=== PATIENT | female | born 1955 | race Caucasian/White ===

== ENCOUNTER 2017-05-27 08:43 | Inpatient (IN) | payer MEDICARE, OTHER ==
[~2017-05-27] VITALS: Ht 154.9 cm; Wt 118.5 kg
[2017-05-27] MEDS ORDERED: SODIUM CHLORIDE FLUSH 10ML SYR IVF ONE (09:30)
[2017-05-27] MEDS ORDERED: SODIUM CHLORIDE 0.9% 1,000ML IVBOLUS ONE (09:30)
[2017-05-27] MEDS ORDERED: METO200T5 PO (09:32)
[2017-05-27] MEDS ORDERED: ESOM20CA PO (09:32)
[2017-05-27] MEDS ORDERED: BUDE10.2 INH (09:32)
[2017-05-27] MEDS ORDERED: METF500T4 PO (09:32)
[2017-05-27] MEDS ORDERED: ATOR40TA78 PO (09:32)
[2017-05-27] MEDS ORDERED: DULO30CA2 PO (09:32)
[2017-05-27] MEDS ORDERED: TIOT18CA INH (09:32)
[2017-05-27] MEDS ORDERED: CHOL200074 PO (09:32)
[2017-05-27] MEDS ORDERED: VARE1TAB21 PO (09:32)
[2017-05-27] MEDS ORDERED: LISI5TAB7 PO (09:32)
[2017-05-27] MEDS ORDERED: FURO20TA3 PO (09:32)
[2017-05-27] MEDS ORDERED: ASPI-496 PO (09:32)
[2017-05-27] MEDS ORDERED: METH500T7 PO (09:32)
[2017-05-27] MEDS ORDERED: INSU100V8 SQ (09:32)
[2017-05-27] MEDS ORDERED: FENT1PAT77 TD (09:32)
[2017-05-27] MEDS ORDERED: OXYC-307 PO (09:32)
[2017-05-27] MEDS ORDERED: GABA300C10 PO (09:32)
[2017-05-27] MEDS ORDERED: GLUC1VIA4 SQ (09:32)
[2017-05-27] MEDS ORDERED: TRAZ50TA18 PO (09:32)
[2017-05-27] MEDS ORDERED: MAGN250T8 PO (09:32)
[2017-05-27 10:07] LABS: BASOPHILS # (AUTO) 0.04 x10^3/uL (0-0.1); BASOPHILS % (AUTO) 0 % (0-1); EOSINOPHILS # (AUTO) 0.01 x10^3/uL (0-0.4); EOSINOPHILS % (AUTO) 0 % (1-7); LYMPHOCYTES # (AUTO) 2.05 x10^3/uL (1-3.4); LYMPHOCYTES % (AUTO) 17 % (22-44); MD NO; MEAN CORPUSCULAR HEMOGLOBIN 26.8 pg (27.0-34.8); MEAN CORPUSCULAR HGB CONC 32.4 g/dL (32.4-35.8); MEAN CORPUSCULAR VOLUME 82.8 fL (80-100); MEAN PLATELET VOLUME 8.9 fL (7.4-10.4); MONOCYTES # (AUTO) 0.64 x10^3/uL (0.2-0.8); MONOCYTES % (AUTO) 6 % (2-9); NEUTROPHILS # (AUTO) 9.01 x10^3/uL (1.8-6.8); NEUTROPHILS % (AUTO) 77 % (42-75); PLATELET COUNT 258 x10^3/uL (130-400); RED BLOOD COUNT 4.27 x10^6/uL (3.82-5.3); RED CELL DISTRIBUTION WIDTH 16.6 % (9.6-15.2)
[2017-05-27 10:21] LABS: ALANINE AMINOTRANSFERASE 39 U/L (12-78); ALBUMIN 3.5 g/dL (3.4-5.0); ANION GAP 6 mmol/L (5-15); CALCIUM 8.3 mg/dL (8.5-10.1); CHLORIDE 101 mmol/L (98-107); CREATININE 1.73 mg/dL (0.55-1.02)
[2017-05-27 10:24] LABS: ALKALINE PHOSPHATASE 93 U/L (45-117); BILIRUBIN,TOTAL 0.2 mg/dL (0.2-1.0); TOTAL PROTEIN 7.8 g/dL (6.4-8.2); TROPONIN I < 0.015 ng/mL (0.000-0.045)
[2017-05-27] MEDS ORDERED: CEFTRIAXONE PMX 1GM/50ML 50 ML IVPB ONE (11:00)
[2017-05-27] MEDS ORDERED: CEFTRIAXONE PMX 1GM/50ML 50 ML ONE (11:58)
[2017-05-27] MEDS ORDERED: MORPHINE SULFATE 4 MG/ML, 1ML ONE (13:14)
[2017-05-27] MEDS ORDERED: ONDANSETRON 2MG/ML, 2ML ONE (13:14)
[2017-05-27] MEDS ORDERED: SODIUM CHLORIDE FLUSH 10ML SYR IVF PRN (14:00)
[2017-05-27] MEDS: SODIUM CHLORIDE 0.9% 1,000 ML IV SCH (15:46)
[2017-05-27] MEDS ORDERED: PHARMACY MAY ADJ FOR RENAL FX MC PRN (16:00)
[2017-05-27] MEDS ORDERED: ONDANSETRON 2MG/ML, 2ML IVPush PRN (16:00)
[2017-05-27] MEDS: FENTANYL REMOVE PATCH NOTE XX SCH (16:00)
[2017-05-27] MEDS: METHOCARBAMOL 500 MG TABLET PO SCH ×2 (16:00→21:04)
[2017-05-27] MEDS ORDERED: ONDANSETRON ODT 4 MG PO PRN (16:00)
[2017-05-27] MEDS: NICOTINE 14MG/24 HR PATCH.TD24 TD SCH (16:00)
[2017-05-27] MEDS ORDERED: IPRATROPIUM 0.5 MG/2.5 ML INHA HHN SCH (16:30)
[2017-05-27] MEDS: METOPROLOL MC SCH (16:30)
[2017-05-27 16:42] LABS: HEMOGLOBIN A1C 7.1 % (4.2-6.3)
[2017-05-27] MEDS: ENOXAPARIN 40 MG/0.4 ML SQ SCH (17:20)
[2017-05-27] MEDS: GABAPENTIN 400 MG CAPSULE PO SCH ×2 (17:21→21:04)
[2017-05-27] MEDS: AZITHROMYCIN 500 MG in SODIUM CHLORIDE 0.9% 250 ML IV SCH (17:21)
[2017-05-27] MEDS: OXYcodone/APAP 10/325MG TABLET PO PRN (17:22)
[2017-05-27] MEDS: FENTANYL 25 MCG PATCH TD SCH (17:23)
[2017-05-27] MEDS: INSULIN DETEMIR 100 UNITS/ML, PEN SQ-INSULIN SCH (18:46)
[2017-05-27 19:00] VITALS: BP 96/56
[2017-05-27] MEDS: ALBUTEROL/IPRATROPIUM 2.5MG/0.5MG, 3 ML NPPB SCH (20:20)
[2017-05-27] MEDS: TRAZODONE 50MG TABLET PO SCH (21:00)
[2017-05-27] MEDS: ATORVASTATIN 40 MG TABLET PO SCH (21:04)
[2017-05-28] MEDS: METOPROLOL MC SCH ×2 (00:30→08:30)
[2017-05-28 01:51] VITALS: BP 101/67
[2017-05-28] MEDS: ALBUTEROL/IPRATROPIUM 2.5MG/0.5MG, 3 ML NPPB SCH ×5 (02:34→18:51)
[2017-05-28] MEDS: SODIUM CHLORIDE 0.9% 1,000 ML IV SCH (04:53)
[2017-05-28 05:38] LABS: BASOPHILS # (AUTO) 0.03 x10^3/uL (0-0.1); BASOPHILS % (AUTO) 0 % (0-1); EOSINOPHILS # (AUTO) 0.05 x10^3/uL (0-0.4); EOSINOPHILS % (AUTO) 1 % (1-7); LYMPHOCYTES # (AUTO) 2.28 x10^3/uL (1-3.4); LYMPHOCYTES % (AUTO) 31 % (22-44); MD NO; MEAN CORPUSCULAR HEMOGLOBIN 26.8 pg (27.0-34.8); MEAN CORPUSCULAR HGB CONC 31.7 g/dL (32.4-35.8); MEAN CORPUSCULAR VOLUME 84.5 fL (80-100); MEAN PLATELET VOLUME 8.8 fL (7.4-10.4); MONOCYTES # (AUTO) 0.73 x10^3/uL (0.2-0.8); MONOCYTES % (AUTO) 10 % (2-9); NEUTROPHILS # (AUTO) 4.26 x10^3/uL (1.8-6.8); NEUTROPHILS % (AUTO) 58 % (42-75); PLATELET COUNT 229 x10^3/uL (130-400); RED CELL DISTRIBUTION WIDTH 17.4 % (9.6-15.2)
[2017-05-28 05:39] LABS: ALANINE AMINOTRANSFERASE 34 U/L (12-78); ALBUMIN 2.8 g/dL (3.4-5.0); ANION GAP 2 mmol/L (5-15); CALCIUM 8.2 mg/dL (8.5-10.1); CHLORIDE 111 mmol/L (98-107); CREATININE 1.14 mg/dL (0.55-1.02)
[2017-05-28 05:41] LABS: ALKALINE PHOSPHATASE 73 U/L (45-117); BILIRUBIN,TOTAL 0.5 mg/dL (0.2-1.0); TOTAL PROTEIN 6.7 g/dL (6.4-8.2)
[2017-05-28 08:20] VITALS: BP 105/54
[2017-05-28] MEDS: OXYcodone/APAP 10/325MG TABLET PO PRN ×3 (08:49→23:14)
[2017-05-28] MEDS: FLUTICASONE/VILANTEROL 200-25MCG/INH INH SCH (09:00)
[2017-05-28] MEDS ORDERED: METOPROLOL SUCCINATE PO SCH (09:00)
[2017-05-28] MEDS ORDERED: METO-264 PO (09:10)
[2017-05-28] MEDS: METHOCARBAMOL 500 MG TABLET PO SCH ×3 (09:28→20:46)
[2017-05-28] MEDS: ACETAMINOPHEN 325 MG TABLET PO PRN ×2 (09:28→17:11)
[2017-05-28] MEDS: GABAPENTIN 400 MG CAPSULE PO SCH ×3 (09:29→20:46)
[2017-05-28] MEDS: ASPIRIN 81 MG TABLET EC PO SCH (09:29)
[2017-05-28] MEDS: DULOXETINE 30 MG CAPSULE.DR PO SCH (09:29)
[2017-05-28] MEDS: CEFTRIAXONE PMX 1GM/50ML 50 ML IV SCH (09:32)
[2017-05-28 15:10] VITALS: BP 108/73
[2017-05-28] MEDS ORDERED: GLUCAGON 1 MG IM PRN (16:00)
[2017-05-28] MEDS ORDERED: DEXTROSE 50%, 50ML SYRINGE IVPush PRN (16:00)
[2017-05-28] MEDS: INSULIN ASPART 100 UNITS/ML, PEN SQ-INSULIN SCH ×2 (16:00→20:45)
[2017-05-28] MEDS ORDERED: DEXTROSE 4 GM TAB.CHEW PO PRN (16:00)
[2017-05-28] MEDS ORDERED: VANCOMYCIN 2,000 MG in SODIUM CHLORIDE 0.9% 500 ML IV SCH (17:00)
[2017-05-28] MEDS ORDERED: PHARMACOKINETIC CONSULTATION MC ONE (17:00)
[2017-05-28] MEDS ORDERED: VANCOMYCIN PER PHARMACY MC PRN (17:00)
[2017-05-28] MEDS ORDERED: PHARMACOKINETIC MONITORING MC PRN (17:00)
[2017-05-28] MEDS: METOPROLOL TARTRATE 50 MG TABLET PO SCH (17:02)
[2017-05-28] MEDS: NICOTINE 14MG/24 HR PATCH.TD24 TD SCH (17:11)
[2017-05-28] MEDS: PANTOPRAZOLE 20MG TABLET PO SCH (17:11)
[2017-05-28 19:51] VITALS: BP 132/72
[2017-05-28] MEDS: AZITHROMYCIN 500 MG in SODIUM CHLORIDE 0.9% 250 ML IV SCH (20:43)
[2017-05-28] MEDS: INSULIN DETEMIR 100 UNITS/ML, PEN SQ-INSULIN SCH (20:45)
[2017-05-28] MEDS: ATORVASTATIN 40 MG TABLET PO SCH (20:46)
[2017-05-28] MEDS: ENOXAPARIN 40 MG/0.4 ML SQ SCH (20:46)
[2017-05-28] MEDS: TRAZODONE 50MG TABLET PO SCH (20:46)
[2017-05-28] MEDS: SODIUM CHLORIDE FLUSH 10ML SYR IVF SCH (20:51)
[2017-05-29] MEDS: ARTIFICIAL TEARS OPHTH SOLN 15ML EACHEYE PRN ×3 (00:26→20:58)
[2017-05-29] MEDS: SODIUM CHLORIDE NASAL SPRAY 45ML BOTTLE NAS PRN ×3 (00:44→20:59)
[2017-05-29 02:00] VITALS: BP 107/57
[2017-05-29] MEDS: ALBUTEROL/IPRATROPIUM 2.5MG/0.5MG, 3 ML NPPB SCH ×4 (03:00→18:58)
[2017-05-29 05:39] LABS: ANION GAP 6 mmol/L (5-15); CALCIUM 8.1 mg/dL (8.5-10.1); CHLORIDE 112 mmol/L (98-107); CREATININE 0.65 mg/dL (0.55-1.02)
[2017-05-29] MEDS: METOPROLOL TARTRATE 50 MG TABLET PO SCH ×2 (05:47→18:09)
[2017-05-29] MEDS: SODIUM CHLORIDE 0.9% 1,000 ML IV SCH ×2 (05:48→20:56)
[2017-05-29] MEDS: OXYcodone/APAP 10/325MG TABLET PO PRN ×2 (05:55→16:42)
[2017-05-29] MEDS: ACETAMINOPHEN 325 MG TABLET PO PRN ×3 (06:02→23:11)
[2017-05-29] MEDS: INSULIN ASPART 100 UNITS/ML, PEN SQ-INSULIN SCH ×4 (07:00→20:59)
[2017-05-29 07:32] VITALS: BP 118/70
[2017-05-29] MEDS: FLUTICASONE/VILANTEROL 200-25MCG/INH INH SCH (09:00)
[2017-05-29] MEDS: SODIUM CHLORIDE FLUSH 10ML SYR IVF SCH ×2 (09:00→20:57)
[2017-05-29] MEDS: PANTOPRAZOLE 20MG TABLET PO SCH ×2 (09:33→18:09)
[2017-05-29] MEDS: METHOCARBAMOL 500 MG TABLET PO SCH ×3 (09:33→20:58)
[2017-05-29] MEDS: ASPIRIN 81 MG TABLET EC PO SCH (09:33)
[2017-05-29] MEDS: GABAPENTIN 400 MG CAPSULE PO SCH ×3 (09:33→20:58)
[2017-05-29] MEDS: DULOXETINE 30 MG CAPSULE.DR PO SCH (09:33)
[2017-05-29] MEDS: CEFTRIAXONE PMX 1GM/50ML 50 ML IV SCH (11:18)
[2017-05-29] MEDS: VANCOMYCIN 2,000 MG in SODIUM CHLORIDE 0.9% 500 ML IV SCH (13:38)
[2017-05-29 14:04] VITALS: BP 140/76
[2017-05-29] MEDS: NICOTINE 14MG/24 HR PATCH.TD24 TD SCH (16:43)
[2017-05-29 20:26] VITALS: BP 149/77
[2017-05-29] MEDS: AZITHROMYCIN 500 MG in SODIUM CHLORIDE 0.9% 250 ML IV SCH (20:55)
[2017-05-29] MEDS: ATORVASTATIN 40 MG TABLET PO SCH (20:58)
[2017-05-29] MEDS: INSULIN DETEMIR 100 UNITS/ML, PEN SQ-INSULIN SCH (20:58)
[2017-05-29] MEDS: TRAZODONE 50MG TABLET PO SCH (20:58)
[2017-05-29] MEDS: ENOXAPARIN 40 MG/0.4 ML SQ SCH (20:58)
[2017-05-30 01:03] VITALS: BP 132/69
[2017-05-30] MEDS: OXYcodone/APAP 10/325MG TABLET PO PRN ×4 (01:09→20:31)
[2017-05-30] MEDS: ALBUTEROL/IPRATROPIUM 2.5MG/0.5MG, 3 ML NPPB SCH ×2 (03:00→09:00)
[2017-05-30] MEDS: VANCOMYCIN 2,000 MG in SODIUM CHLORIDE 0.9% 500 ML IV SCH (05:43)
[2017-05-30 05:47] VITALS: BP 116/73
[2017-05-30] MEDS: METOPROLOL TARTRATE 50 MG TABLET PO SCH ×2 (05:48→18:46)
[2017-05-30 07:11] VITALS: BP 115/47
[2017-05-30] MEDS: FLUTICASONE/VILANTEROL 200-25MCG/INH INH SCH (08:04)
[2017-05-30] MEDS: ACETAMINOPHEN 325 MG TABLET PO PRN ×3 (08:12→20:30)
[2017-05-30] MEDS: INSULIN ASPART 100 UNITS/ML, PEN SQ-INSULIN SCH ×4 (08:12→20:30)
[2017-05-30] MEDS: METHOCARBAMOL 500 MG TABLET PO SCH ×3 (08:12→20:32)
[2017-05-30] MEDS: PANTOPRAZOLE 20MG TABLET PO SCH ×2 (08:13→18:46)
[2017-05-30] MEDS: ASPIRIN 81 MG TABLET EC PO SCH (08:13)
[2017-05-30] MEDS: GABAPENTIN 400 MG CAPSULE PO SCH ×3 (08:13→20:32)
[2017-05-30] MEDS: DULOXETINE 30 MG CAPSULE.DR PO SCH (08:13)
[2017-05-30] MEDS: SODIUM CHLORIDE FLUSH 10ML SYR IVF SCH ×2 (09:00→20:28)
[2017-05-30] MEDS ORDERED: CEFTRIAXONE 1,000 MG in DEXTROSE 5% 50 ML IV SCH (10:00)
[2017-05-30] MEDS ORDERED: AZITHROMYCIN 500 MG TABLET PO ONE (11:30)
[2017-05-30 12:04] LABS: BASOPHILS # (AUTO) 0.02 x10^3/uL (0-0.1); BASOPHILS % (AUTO) 0 % (0-1); EOSINOPHILS # (AUTO) 0.05 x10^3/uL (0-0.4); EOSINOPHILS % (AUTO) 1 % (1-7); LYMPHOCYTES # (AUTO) 2.62 x10^3/uL (1-3.4); LYMPHOCYTES % (AUTO) 27 % (22-44); MD NO; MEAN CORPUSCULAR HGB CONC 32.3 g/dL (32.4-35.8); MEAN CORPUSCULAR VOLUME 83.7 fL (80-100); MONOCYTES # (AUTO) 0.93 x10^3/uL (0.2-0.8); MONOCYTES % (AUTO) 10 % (2-9); NEUTROPHILS # (AUTO) 5.96 x10^3/uL (1.8-6.8); NEUTROPHILS % (AUTO) 62 % (42-75); PLATELET COUNT 354 x10^3/uL (130-400); RED BLOOD COUNT 3.86 x10^6/uL (3.82-5.3); RED CELL DISTRIBUTION WIDTH 17.2 % (9.6-15.2)
[2017-05-30 12:17] LABS: ANION GAP 5 mmol/L (5-15); CALCIUM 8.4 mg/dL (8.5-10.1); CHLORIDE 110 mmol/L (98-107)
[2017-05-30 13:32] VITALS: BP 142/66
[2017-05-30] MEDS: GUAIFENESIN ER 600 MG TABLET PO SCH ×2 (14:09→20:31)
[2017-05-30] MEDS ORDERED: ALBUTEROL/IPRATROPIUM 2.5MG/0.5MG, 3 ML NPPB PRN (15:00)
[2017-05-30] MEDS: FENTANYL REMOVE PATCH NOTE XX SCH (16:00)
[2017-05-30] MEDS: NICOTINE 14MG/24 HR PATCH.TD24 TD SCH (16:59)
[2017-05-30] MEDS: FENTANYL 25 MCG PATCH TD SCH (17:00)
[2017-05-30 19:34] VITALS: BP 163/71
[2017-05-30] MEDS: INSULIN DETEMIR 100 UNITS/ML, PEN SQ-INSULIN SCH (20:29)
[2017-05-30] MEDS: ENOXAPARIN 40 MG/0.4 ML SQ SCH (20:30)
[2017-05-30] MEDS: ATORVASTATIN 40 MG TABLET PO SCH (20:31)
[2017-05-30] MEDS: TRAZODONE 50MG TABLET PO SCH (20:32)
[2017-05-30] MEDS: SODIUM CHLORIDE NASAL SPRAY 45ML BOTTLE NAS PRN (20:36)
[2017-05-30] MEDS: ARTIFICIAL TEARS OPHTH SOLN 15ML EACHEYE PRN (20:36)
[2017-05-31 01:19] VITALS: BP 130/71
[2017-05-31] MEDS: ACETAMINOPHEN 325 MG TABLET PO PRN (02:41)
[2017-05-31] MEDS: OXYcodone/APAP 10/325MG TABLET PO PRN (02:41)
[2017-05-31] MEDS: METOPROLOL TARTRATE 50 MG TABLET PO SCH (03:45)
[2017-05-31] MEDS ORDERED: CEFD300C37 PO (06:42)
[2017-05-31] MEDS: INSULIN ASPART 100 UNITS/ML, PEN SQ-INSULIN SCH ×2 (07:00→12:04)
[2017-05-31 07:44] VITALS: BP 148/71
[2017-05-31] MEDS: GABAPENTIN 400 MG CAPSULE PO SCH (09:37)
[2017-05-31] MEDS: GUAIFENESIN ER 600 MG TABLET PO SCH (09:37)
[2017-05-31] MEDS: METHOCARBAMOL 500 MG TABLET PO SCH (09:37)
[2017-05-31] MEDS: DULOXETINE 30 MG CAPSULE.DR PO SCH (09:37)
[2017-05-31] MEDS: ASPIRIN 81 MG TABLET EC PO SCH (09:37)
[2017-05-31] MEDS: SODIUM CHLORIDE FLUSH 10ML SYR IVF SCH (09:38)
[2017-05-31] MEDS: PANTOPRAZOLE 20MG TABLET PO SCH (09:38)
[2017-05-31] MEDS: FLUTICASONE/VILANTEROL 200-25MCG/INH INH SCH (09:38)
[2017-05-31 13:03] VITALS: BP 139/66
== END 2017-05-31 15:31 | disposition home or self-care (01) | DRG 682 ==
LOC: ED 10:22 → EDIP 13:40 → 4WST 15:11
PROVIDERS: ADMIT Internal Medicine; ATTEND Internal Medicine
DX: N17.0 Acute kidney failure with tubular necrosis (principal); J18.9 Pneumonia, unspecified organism; J96.01 Acute respiratory failure with hypoxia; E11.42 Type 2 diabetes mellitus with diabetic polyneuropathy; E11.22 Type 2 diabetes mellitus with diabetic chronic kidney disease; F11.20 Opioid dependence, uncomplicated; I48.91 Unspecified atrial fibrillation; E87.1 Hypo-osmolality and hyponatremia; J44.0 Chronic obstructive pulmonary disease with (acute) lower respiratory infection; Z68.42 Body mass index [BMI] 45.0-49.9, adult; E66.01 Morbid (severe) obesity due to excess calories; E87.5 Hyperkalemia; E78.5 Hyperlipidemia, unspecified; F17.210 Nicotine dependence, cigarettes, uncomplicated; E04.1 Nontoxic single thyroid nodule; E78.00 Pure hypercholesterolemia, unspecified; G47.33 Obstructive sleep apnea (adult) (pediatric); I25.10 Atherosclerotic heart disease of native coronary artery without angina pectoris; M19.90 Unspecified osteoarthritis, unspecified site; M79.7 Fibromyalgia; G89.29 Other chronic pain; I12.9 Hypertensive chronic kidney disease with stage 1 through stage 4 chronic kidney disease, or unspecified chronic kidney disease; N18.2 Chronic kidney disease, stage 2 (mild); Z88.5 Allergy status to narcotic agent; Z88.1 Allergy status to other antibiotic agents; Z79.4 Long term (current) use of insulin
CPT/HCPCS: 36415; 36600; 71020; 71250; 80048; 80053; 82803; 82962; 83036; 83605; 84484; 85025; 87040; 93005; 93306; 94640; 96361; 96365; 96366; J0456; J0696; J1650; J1815; J3370; J7620; J7030; J7040; J7050